=== PATIENT | female | born 1970 | race Caucasian/White ===

== ENCOUNTER 2022-09-27 16:51 | Observation (INO) | payer BC, SELFPAY ==
[2022-09-27 16:46] VITALS: BMI 28.8
--- NOTE | 2022-09-27 16:48 | CT_ITS ---
CT LEFT LOWER EXTREMITY WITH 3-D IMAGING CLINICAL INDICATION: Bilateral thigh pain. TECHNIQUE: Axial CT images of the LEFT lower extremity was performed IV contrast material. Coronal and sagittal reformats were provided. RADIATION DOSAGE (If Supplied By Facility): CTDIvol = ( 15.40 ) mGy, DLP = ( 874.48 ) mGycm COMPARISON: None. FINDINGS: Bones: Osseous structures are normal without evidence of fracture or dislocation. No lytic or blastic osseous masses. Soft Tissues: The deep soft tissue structures are unremarkable. The superficial soft tissues are unremarkable without evidence of edema, hematoma, or foreign body. CT/Extremity Lower without Contra IMPRESSION: Normal CT evaluation of the lower extremity without evidence of fracture, dislocation, or significant soft tissue abnormality. Electronically Signed: Winston Cooper MD at 9:17 EDT ,
--- NOTE | 2022-09-27 16:59 | PCM.HP.STD ---
[facility] - General General Date of Admission: 09/27/22 Date of Service: 09/27/22 Chief Complaint: Chest pain and bilateral leg pain HPI Narrative DOROTHEA FLOYD, is a 51 F with a history of tobacco abuse and diabetes and who presents to outside emergency department with several weeks history of chest pain and bilateral thigh pain. Patient states chest pain is constant however appears to wax and wane. Pain is described as gripping and is not associated with palpitations or shortness of breath. She had an episode while in the emergency department that was however associated with diaphoresis, shortness of breath and one episode of vomiting. Troponins x2 were negative. EKG was negative as well. Has also had bilateral thigh pain that is described as sharp that is exacerbated by walking and improved with rest. Denies any pain in the calves or feet. [facility] Family History no significant family his no significant family history Social History Smoking Status: Current every day smoker tobacco type: cigarettes ROS ROS Narrative Denies any abdominal pain or diarrhea. Denies any lower extremity swelling. Denies any claudication. All other systems reviewed and essentially negative or as above in the body of the history. Vital Signs Vital Signs Vital Signs: Weight Weight: 71.6 kg Body Mass Index (BMI) 28.8 Physical Exam Narrative General exam. Middle-aged woman, appears older than stated age, not in any obvious distress HEENT. Oral mucosa moist no pallor jaundice or no cyanosis Neck. Neck is supple Heart. First and second heart sounds are no murmurs Lungs. Clear to auscultation. Abdomen. Soft and full nontender Extremities. No pedal edema, dorsalis pedis pulse diminished bilaterally, good and strong posterior tibial pulses. Both feet are warm. No differential and temperature. Tenderness on deep palpation to both thighs especially on the left. No masses felt. [employer]. Conscious alert oriented x3 cranial 2-12 grossly intact. Power 5 out of 5 in all extremities. Gait is slightly antalgic. Results Medical Records Data Attestation: I reviewed the patient's medical records Lab / Micro Data Attestation: I reviewed the patient's lab results. Assessment & Plan Assessment/Plan (1) Chest pain: PLAN: Plan Assessment and plan 1. Chest pain. Appears to be chronic with episodes of exacerbation. Doubtful this is cardiac and initial work-up not suggestive. Will admit patient to the PCU with telemetry. Nonetheless reasonable to do a stress test given patient's cardiovascular risk factors. Keep n.p.o. after midnight. We will need to consider other possible etiologies including esophageal spasms. We will do an x-ray esophagram as well. Keep on telemetry. 2. Bilateral thigh pain. Presence of foot pulses ruled out claudication/ischemic causation. Unclear etiology. Will check CK levels and do a CT of the femur. Possibly just related to osteoarthritis. Scheduled Tylenol 1000 mg every 8 hours and celecoxib 200 mg twice a day for symptom management. 3. Type 2 diabetes. Controlled with diet. Check A1c. Continue dietary measures. 4. Tobacco abuse. Charges/Coding Visit Charges Inpatient E&M: 18267 Init Hosp L3
[2022-09-27 20:40] VITALS: BP 94/47; PULSE 67; RESP 16; TEMP 36.8; O2SAT 97
[2022-09-27 21:36] VITALS: O2SAT 97
[2022-09-28 03:12] VITALS: BP 107/52; PULSE 65; RESP 16; TEMP 36.8; O2SAT 95
[2022-09-28 03:15] VITALS: O2SAT 98
--- NOTE | 2022-09-28 05:55 | EKG12_ITS ---
Test Reason : AM EKG Blood Pressure : / mmHG Vent. Rate : 063 BPM Atrial Rate : 063 BPM P-R Int : 142 ms QRS Dur : 070 ms QT Int : 442 ms P-R-T Axes : 030 026 046 degrees QTc Int : 452 ms Normal sinus rhythm Low voltage QRS Borderline ECG Confirmed by XIN WILL, KEKE ([id number]), sports editor QUINN RATLIFF ([id number]) on 10/02/2022 7:18:45 AM Referred By: ROZ Confirmed By:KEKE LAUREN MD
[2022-09-28 06:36] LABS: Absolute Lymphocyte Count 2.04 X10^3/uL (0.83-4.51); Absolute Neutrophil Count 6.9 X10^3/uL (2.0-7.7); Basophil# 0.04 X10^3/uL; Basophil% 0.4 % (0-1); Eosinophil# 0.15 X10^3/uL; Eosinophils% 1.6 % (0-5); Hematocrit 41.5 % (37-47); Hemoglobin 13.7 g/dL (12.0-15.0); Lymphocyte # 2.04 X10^3/ul (0.83-4.51); Lymphocyte % 21.1 % (19-41); Mean Corpuscular Volume 90.8 fL (81-99); Mean Platelet Vol. 8.8 fl (6.2-12.0); Monocyte% 5.2 % (0-10); NRBC Flagged by Analyzer 0 % (0-5); Neutrophil # 6.87 X10^3/uL (2.7-7.7); Neutrophil % 71.2 % (47-70); Platelet Count 235 K/mm3 (150-450); RBC Distribution Width CV 12.5 % (11.6-14.6); RBC Distribution Width SD 41.6 fl (35.1-43.9); Red Blood Count 4.57 M/mm3 (4.2-5.4); White Blood Count 9.7 K/mm3 (4.4-11.0)
[2022-09-28 06:52] LABS: ALB/GLOB Ratio 1.2 RATIO (0.9-2.4); AST(SGOT) 17 U/L (15-37); Alanine Aminotransfer ALT/SGPT 26 U/L (13-56); Albumin, Serum 3.7 g/dL (3.2-5.0); Alkaline Phosphatase 53 U/L (45-117); Anion Gap 4 (5-15); BUN 12 mg/dL (7-18); BUN/Creat Ratio 15.1 RATIO (10-20); CPK Total, Creatine Kinase 56 U/L (26-192); Calcium,Total 8.8 mg/dL (8.5-10.1); Chloride 110 mmol/L (98-107); Creatinine, Serum 0.79 mg/dL (0.55-1.02); EST Glomerular Filtration Rate 81 mL/min (>60); Est Glom Filt Rate - Afr Amer 97 mL/min (>60); Estimated Creatinine Clearance 65.88 ml/min; Glucose 102 mg/dL (74-106); Potassium 4.1 mmol/L (3.5-5.1); Protein, Total 6.7 g/dL (6.4-8.2); Sodium Level 141 mmol/L (136-145)
[2022-09-28 07:20] LABS: Hemoglobin A1c 7.1 % (3.8-5.6)
[2022-09-28 08:14] LABS: Vitamin B12 879 pg/mL (211-911)
[2022-09-28] MEDS: Enoxaparin 40 MG/0.4 ML Syringe SC (09:01)
[2022-09-28 09:12] VITALS: BP 106/57; PULSE 62; RESP 18; TEMP 36.9; O2SAT 94
--- NOTE | 2022-09-28 12:04 | STRESSREP ---
Stress Test Report Insert date: 09/28/2022 Procedure: Pharmacologic stress nuclear imaging study Indications: Chest pain Consent: Per the patient Procedure: The patient underwent pharmacologic (Regadenoson 0.4mg ) evaluation with a peak heart rate of 127 beats per minute (75%predicted maximal heart rate) and a peak blood pressure of 144/70 mmHg. The baseline ECG demonstrated normal sinus rhythm with nonspecific T changes. The peak pharmacologic ECG demonstrated no diagnostic ischemic changes. There were no cardiac dysrhythmias pretest, during pharmacologic infusion, or recovery. Patient complained of 2/10 chest pain before the test. The patient was injected with 12.0 millicuries of technetium 99m Cardiolite and subsequently rest SPECT Cardiolite nuclear imaging was obtained in the horizontal long, vertical long, and short axis views. The patient underwent pharmacologic (Regadenoson) evaluation. The patient was injected with 34.5 millicuries of technetium 99m Cardiolite and subsequently stress SPECT Cardiolite nuclear imaging was obtained in the horizontal long, vertical long, and short axis views. A gated Cardiolite study at peak stress was obtained. The examination was stopped secondary to completion of protocol. Rest and stress SPECT Cardiolite nuclear imaging status post realignment, normalization, and attenuation correction demonstrate no fixed or reversible perfusion defects. There is end systolic thickening and brightening. The gated Cardiolite study demonstrates myocardial thickening and inward wall motion. The reported LVEF is 81%. Impression: 1. Pharmacologic (Regadenoson) evaluation 2. Peak pharmacologic ECG with no ischemic changes. 3. There were no cardiac dysrhythmias pretest, during pharmacologic infusion, or recovery. 5. Rest and stress SPECT Cardiolite nuclear imaging demonstrate relative uniform tracer uptake and myocardial perfusion appearing within normal limits. 6. The gated Cardiolite study reports an LVEF of 81%. This note was generated with [employer] software. It may contain incorrect words, spelling, and punctuation that were not noted in checking the note before signing.
--- NOTE | 2022-09-28 12:20 | DCINST_ITS ---
Discharge Instructions Diet Discharge Diet: No restrictions Activity Discharge Activity: Return to Normal Activity Follow Up Care Test Results: Test results from this visit will be discussed in further detail at your follow- up appointment, if applicable. Discharge Plan Admission Admit Date/Time: 09/27/22 16:51 Primary Reason for Your Visit: Chest and leg pain Attending Provider: Cari Wiley Consulting Providers: Luis Daniel Chi Instructions Patient Instructions: 5 Steps for Eating Healthier, ED How to Quit Smoking Additional Instructions / Restrictions: - It is recommended that you call your primary care physician's office upon discharge to schedule hospital follow-up appointment within 1 week. Your stress test was negative but you may need evaluated for other etiologies of the feeling in your chest like outpatient swallow or GI evaluations. Will defer to your primary care physician for further routine work-up -If you do not have a primary care physician of list of local primary care physicians can be provided for you upon discharge. Please ask for this list prior to discharge -For any concerning signs or symptoms please call 911 or proceed to the nearest emergency department Discharge Orders/Prescriptions Prescriptions: Continued thyroid (pork) PO lipitor Referrals / Follow Up: PCP, Follow up [Other] ( -If you do not have a primary care physician of list of local primary care physicians can be provided for you upon discharge. Please ask for this list prior to discharge) Disposition Disposition (needs filled in before D/C Order can be placed): Home, Self Care
--- NOTE | 2022-09-28 12:21 | PCM.DC.SUM ---
Providers Date of Admission: 09/27/22 Date of Discharge: 09/28/22 Reason For Visit: CHEST PAIN Diagnosis Discharge Diagnosis (1) Chest pain: Status: Acute Code(s): R07.9 - Chest pain, unspecified Qualifiers: Chest pain type: unspecified Qualified Code(s): R07.9 - Chest pain, unspecified (2) Diabetes mellitus, type 2: Status: Acute Code(s): E11.9 - Type 2 diabetes mellitus without complications Plan #DMII #Unspecified chest pain- suspect non cardiac #Tobacco use disorder Medications at Discharge Home Medications lipitor 09/27/22 thyroid (pork) PO 09/27/22 Hospital Course Procedures Stress test Summary of Care Provided Minutes Spent on Discharge: 31 Hospital Course: 51-year-old female with history of tobacco use and diabetes presented to [facility] 09/27/2022 with chest pain and bilateral leg pain. Both of these issues are chronic however today she felt she should be evaluated. Chest pain is somewhat of a tightness and waxes and wanes or sometimes stays consistently but has no associated factors noted and there are no palpitations or shortness of breath. She reportedly in the ED did have 1 episode where she had some sweating and an episode of vomiting so medicine service was consulted for admission. She also reports that she has had bilateral leg pain more so on the left thigh than right but no pain in calves or feet. Troponins negative x2 and she had stress test performed which was negative. Pain in chest seems to be chronic with episodes of worsening. She reported in the a.m. that her pain had continued to improve and pain was nonspecific. Initially planned on swallow evaluation while she was here however cannot be scheduled for 4 days and patient stable and stress test normal so this can be further evaluated on a nonemergent outpatient basis. Additionally patient noted to have hemoglobin A1c of 7.1, discussed metformin versus lifestyle modification she opted for lifestyle modification. Also due to her thigh pain she had a CT of her left femur and the CT overall was unremarkable. Again, patient stable, can follow this up on a nonemergent outpatient basis. Patient verbalized understanding. Discharge instructions as follows: DISCHARGE INSTRUCTIONS PLEASE READ *Please take this with you to your next doctors appointment* -It is recommended that you call your primary care physician's office upon discharge to schedule hospital follow-up appointment within 1 week. Your stress test was negative but you may need evaluated for other etiologies of the feeling in your chest like outpatient swallow or GI evaluations. Will defer to your primary care physician for further routine work-up -Additionally you are noted to have an elevated A1c of 7.1 which is a marker of diabetes and this is in the diabetic range. We discussed lifestyle modifications versus starting metformin and you opted for lifestyle modifications. Would recommend he discuss this with your primary care physician upon discharge so this can be followed over time and appropriate changes can be made if indicated -If you do not have a primary care physician of list of local primary care physicians can be provided for you upon discharge. Please ask for this list prior to discharge -Please call your primary care provider's office upon discharge to schedule a hospital follow up within 1 week. -For any concerning signs or symptoms please call 911 or proceed to the nearest emergency department Physical Exam Narrative General: Alert, oriented, no apparent distress HEENT: Atraumatic, normocephalic Eyes: Anicteric, normal conjunctiva, extraocular movements grossly intact Neck: Supple Respiratory: Clear to auscultation bilaterally, normal respiratory effort Cardiovascular: Regular rate and rhythm GI: Soft, nontender, nondistended Extremities: No edema Musculoskeletal: Moving all extremities Neuro: No overt focal neurological deficits Skin: No rashes appreciated Psych: Cooperative Weight / BMI Weight Weight: 71.6 kg Body Mass Index (BMI) 28.8 ABG / Lab / Microbiology Data 09/28/22 05:58 09/28/22 05:58 Laboratory: Laboratory Results - last 24 hr 09/28/22 05:58: WBC 9.7, RBC 4.57, Hgb 13.7, Hct 41.5, MCV 90.8, MCH 30.0, MCHC 33.0, RDW Std Deviation 41.6, RDW Coeff of Paul 12.5, Plt Count 235, MPV 8.8, Immature Gran % (Auto) 0.500, Neut % (Auto) 71.2 H, Lymph % (Auto) 21.1, Howell % (Auto) 5.2, Eos % (Auto) 1.6, Baso % (Auto) 0.4, Absolute Neuts (auto) 6.9, Absolute Lymphs (auto) 2.04, Nucleated RBC % 0, Sodium 141, Potassium 4.1, Chloride 110 H, Carbon Dioxide 27.0, Anion Gap 4 L, BUN 12, Creatinine 0.79, Estim Creat Clear Calc 65.88, Est GFR (MDRD) Af Amer 97, Est GFR (MDRD) Non-Af 81, BUN/Creatinine Ratio 15.1, Glucose 102, Hemoglobin A1c 7.1 H, Calcium 8.8, Total Bilirubin 0.70, AST 17, ALT 26, Alkaline Phosphatase 53, Total Creatine Kinase 56, Total Protein 6.7, Albumin 3.7, Globulin 3.0, Albumin/Globulin Ratio 1.2, Vitamin B12 879 Radiography Diagnostic Testing: Radiology Impression Lower Extremity CT 09/27/22 16:48 IMPRESSION: Normal CT evaluation of the lower extremity without evidence of fracture, dislocation, or significant soft tissue abnormality. Electronically Signed: Winston Cooper MD at 9:17 EDT , D/C Instructions Discharge Diet: No restrictions Meaningful Use Info Meaningful Use Diagnoses (Choose all that apply): None applicable Discharge Plan Admission Admit Date/Time: 09/27/22 16:51 Primary Reason for Your Visit: Chest and leg pain Attending Provider: Cari Wiley Consulting Providers: Luis Daniel Chi Instructions Patient Instructions: 5 Steps for Eating Healthier, Diabetes Support, Can You Control Diabetes ..., ED How to Quit Smoking Additional Instructions / Restrictions: DISCHARGE INSTRUCTIONS PLEASE READ *Please take this with you to your next doctors appointment* -It is recommended that you call your primary care physician's office upon discharge to schedule hospital follow-up appointment within 1 week. Your stress test was negative but you may need evaluated for other etiologies of the feeling in your chest like outpatient swallow or GI evaluations. Will defer to your primary care physician for further routine work-up -Additionally you are noted to have an elevated A1c of 7.1 which is a marker of diabetes and this is in the diabetic range. We discussed lifestyle modifications versus starting metformin and you opted for lifestyle modifications. Would recommend he discuss this with your primary care physician upon discharge so this can be followed over time and appropriate changes can be made if indicated -If you do not have a primary care physician of list of local primary care physicians can be provided for you upon discharge. Please ask for this list prior to discharge -Please call your primary care provider's office upon discharge to schedule a hospital follow up within 1 week. -For any concerning signs or symptoms please call 911 or proceed to the nearest emergency department Discharge Orders/Prescriptions Prescriptions: Continued thyroid (pork) PO lipitor Referrals / Follow Up: PCP, Follow up [Other] ( -If you do not have a primary care physician of list of local primary care physicians can be provided for you upon discharge. Please ask for this list prior to discharge) Disposition Disposition (needs filled in before D/C Order can be placed): Home, Self Care Charges/Coding Visit Charges Inpatient E&M: 82910 Disch Hosp >30min
[2022-09-28 15:07] VITALS: BP 106/57; PULSE 62; RESP 18; TEMP 36.9; O2SAT 94
--- NOTE | 2022-09-28 15:16 | PHA.DC.MR.R ---
Pharmacy [place] Med Reconciliation Pharmacy Service has performed discharge medication reconciliation for this patient. No new medications. Patient recently filled atorvastatin 20mg daily and levothyroxine 112mcg daily. The patient's discharge medication list was reviewed for discrepancies and discrepancies were resolved. Medications at Discharge Home Medications lipitor 09/27/22 thyroid (pork) PO 09/27/22
== END 2022-09-28 12:20 | disposition home or self-care (01) ==
PROVIDERS: Admitting Provider Internal Medicine; Visit Provider Internal Medicine
DX: R07.89 Other chest pain (principal); E11.9 Type 2 diabetes mellitus without complications; R06.02 Shortness of breath; M79.651 Pain in right thigh; M79.605 Pain in left leg; M79.652 Pain in left thigh; F17.210 Nicotine dependence, cigarettes, uncomplicated
CPT/HCPCS: 36415; 73700; 78452; 80053; 82550; 82607; 83036; 85025; 93005; 93017; 99221; A9500; G0378; G0379; J2785